=== PATIENT | female | born 1975 | race Hispanic/Latino ===

== ENCOUNTER 2019-08-14 14:40 | Emergency (ER) | payer SELFPAY ==
[2019-08-14] MEDS ORDERED: Famotidine/PF 20 mg/2ml Vial ONE (14:52)
[2019-08-14] MEDS ORDERED: Dexamethasone 10 MG/ML VIAL ONE (15:56)
[2019-08-14] MEDS ORDERED: EPINEPHrine 1 MG/ML AMP ONE (15:56)
== END 2019-08-14 16:50 | disposition home or self-care (01) ==
LOC: ERS 14:40
DX: T63.461A Toxic effect of venom of wasps, accidental (unintentional), initial encounter (principal); J45.909 Unspecified asthma, uncomplicated; F32.9 Major depressive disorder, single episode, unspecified; Z79.899 Other long term (current) drug therapy
CPT/HCPCS: 96372; 96374; 96375; J0171; J1100; S0028